=== PATIENT | female | born 1985 | race Hispanic/Latino ===

== ENCOUNTER 2021-07-01 15:57 | Outpatient (CLI) | payer MEDICAID ==
[2021-07-01] MEDS ORDERED: LACTATED RINGERS 1,000 ML IV ONE (17:48)
[2021-07-01 18:11] LABS: Bilirubin,Urine NEG (Negative); Blood,Urine NEG (Negative); Calcium Oxalate Crystals,Urine 2+; Color,Urine Yellow (Yellow); Mucus,Urine FEW /HPF; Protein,Urine <15 mg/dL mg/dL (Negative); Urobilinogen,Urine < 2.0 mg/dL (<2.0)
[2021-07-01 18:18] VITALS: BP 115/61
== END 2021-07-01 18:41 | disposition home or self-care (01) ==
LOC: TRG 15:57 → APU 16:00 → TRG 18:41
PROVIDERS: ATTEND Obstetrics & Gynecology
DX: Z34.93 Encounter for supervision of normal pregnancy, unspecified, third trimester (principal); Z3A.33 33 weeks gestation of pregnancy
CPT/HCPCS: 59025; 81001

== ENCOUNTER 2021-07-15 20:02 | Outpatient (CLI) | payer MEDICAID ==
[2021-07-15 21:17] VITALS: BP 119/60
== END 2021-07-15 21:38 | disposition home or self-care (01) ==
LOC: TRG 20:02 → APU 20:04 → TRG 21:38
PROVIDERS: ATTEND Obstetrics & Gynecology
DX: O09.893 Supervision of other high risk pregnancies, third trimester (principal); Z3A.35 35 weeks gestation of pregnancy
CPT/HCPCS: 59025